=== PATIENT | male | born 1935 | race Caucasian/White ===

== ENCOUNTER 2017-09-04 14:55 | Emergency (ER) | payer OTHER, BC ==
--- NOTE | 2017-09-04 15:00 | PDOC ---
History of Present Illness - General History Source: Patient Exam Limitations: No Limitations - History of Present Illness Initial Comments: 09/04/17 15:25 The patient is a 81 year old male, with a significant past medical history of hypertension, hyperlipidemia, who presents to the emergency department s/p mechanical fall approximately 2-3 hours ago. The patient reports he was watching his granddaughter, when he tripped over a toy and landed on his left ribs. The patient reports he tried to break the fall with his left hand, and his elbows dug into his left rib cage. He denies any head trauma, LOC, changes in vision, hand pain, hip pain, neck or back pain. The patient reports pain to the left ribs, which is pleuritic in nature. He denies any associated chest pain , shortness of breath, diaphoresis, palpitations, or lower extremity edema. Patient reports he was able to ambulate s/p fall, but was driven to the ER by his daughter. Patient reports applying a heating pad with no relief of symptoms , and denies taking any pain meds. He denies any fever, chills, headache, or dizziness. He denies any abdominal pain, nausea, or vomiting. He denies any recent travel or sick contacts. Allergies: NKDA Past Surgical History: Gastrectomy(2/3 of stomach removed), Bilateral knee replacement Social History: Former smoker. No ETOH or recreational drug use. PCP: Dr. Juarez <Jim Tellez - Last Filed: 09/04/17 15:42> - History of Present Illness Initial Comments: 09/05/17 07:47 Physical exam: Alert oriented well-developed well-nourished mild to moderate distress due to pleuritic left chest pain Afebrile, vital signs normal including respiratory rate and O2 sat duration. No tachypnea or dyspnea at rest. There is slight splinting upon deep inspiration due to pleuritic pain at the site of injury Head atraumatic. PERRLA, ENT clear Neck supple without bruit mass or nodes. No point tenderness or deformity with good range of motion of the cervical spine Lungs clear to P&A, although there is splinting with deep inspiration as noted above Examination of the chest reveals no bruising or ecchymoses of the chest wall. There is point tenderness over the left rib cage, anterior axillary line, mid chest. There is no crepitus or deformity. CV S1 and S2 distant without murmur rub or gallop pulses full and symmetric no JVD or edema Abdomen nondistended. Bowel sounds normal. Soft without mass tenderness or organomegaly. Specifically, there is no tenderness or enlargement over the area of the spleen in the left upper quadrant. Extremities no CCE Neurological intact Skin clear, no rash, adequate turgor and wet mucous membranes Impression: Chest contusion, rule out fractured rib, rule out pulmonary contusion, hemothorax, pneumothorax Plan: X-ray and further medical management depending on results <Byron Espinal - Last Filed: 09/05/17 07:53> - General Chief Complaint: Injury Stated Complaint: LEFT RIBCAGE PAIN Time Seen by Provider: 09/04/17 14:59 Past History <Jim Tellez - Last Filed: 09/04/17 15:42> - Past Medical History Anemia: No Asthma: No Cancer: No Cardiac Disorders: No CVA: No COPD: No CHF: No Dementia: No Diabetes: No GI Disorders: Yes Disorders: No HTN: Yes Hypercholesterolemia: Yes Liver Disease: No Seizures: No Thyroid Disease: No - Surgical History Abdominal Surgery: Yes (GASTRECTOMY-2/3 STOMACH REMOVED) Appendectomy: No Cardiac Surgery: No Cholecystectomy: Yes Lung Surgery: No Neurologic Surgery: No Orthopedic Surgery: Yes (BILATERAL KNEE REPLACEMENT) - Immunization History Td Vaccination: No - Suicide/Smoking/Psychosocial Hx Smoking Status: No Smoking History: Former smoker Have you smoked in the past 12 months: No Number of Cigarettes Smoked Daily: 0 If you are a former smoker, when did you quit?: 40 YEARS AGO Hx Alcohol Use: No Drug/Substance Use Hx: No Substance Use Type: None Hx Substance Use Treatment: No <Byron Espinal - Last Filed: 09/05/17 07:53> - Past Medical History Allergies/Adverse Reactions: Allergies Allergy/AdvReac Type Severity Reaction Status Date / Time No Known Allergies Allergy Verified 09/04/17 14:56 Home Medications: Ambulatory Orders Cholecalciferol (Vitamin D3) [Vitamin D3] 5,000 unit PO DAILY 05/21/15 Cyanocobalamin (Vitamin B-12) [B-12] 1,000 mcg PO DAILY tablet 01/26/16 Review of Systems - Review of Systems Able to Perform ROS?: Yes Comments:: 09/04/17 15:25 CONSTITUTIONAL: Absent: fever, no chills, no fatigue EYES: Absent: visual changes ENT: Absent: ear pain, no sore throat CARDIOVASCULAR: Absent: chest pain, no palpitations RESPIRATORY: Absent: cough, no SOB GI: Absent: abdominal pain, no nausea, no vomiting, no constipation, no diarrhea GENITOURINARY: Absent: dysuria, no frequency, no hematuria MUSCULOSKELETAL: Present: Left rib pain worse with deep inspiration. Absent: back pain, no arthralgia, no myalgia SKIN: Absent: rash NEURO: Absent: headache, loss of consciousness <Jim Tellez - Last Filed: 09/04/17 15:42> *Physical Exam - Vital Signs Last Vital Signs Temp Pulse Resp BP Pulse Ox 97.7 F 74 18 164/91 97 09/04/17 14:55 09/04/17 14:55 09/04/17 14:55 09/04/17 14:55 09/04/17 14:55 - Physical Exam Comments: 09/04/17 15:41 GENERAL: Well-appearing, well-nourished. No apparent distress. HEENT: Normocephalic, atraumatic. PERRL, EOM intact. CARDIOVASCULAR: Normal S1, S2. Regular rate and rhythm. PULMONARY: Full breath sounds without wheezing, rales, or ronchi. Clear to auscultation bilaterally. Mild splinting with deep inspiration, but not tachypneic and with adequate oxygen saturation. ABDOMEN: Soft, non-distended, non-tender. No left upper quadrant tenderness. No splenomegaly. EXTREMITIES: Tenderness over the mid left lateral rib cage. No crepitus or deformity palpated. Otherwise normal ROM to all four extremities. No gross deformities. SKIN: Warm, dry. No rash NEUROLOGICAL: No focal neurological deficits. Patient refuses prescription pain medications. <Jim Tellez - Last Filed: 09/04/17 15:42> Medical Decision Making - Medical Decision Making 09/05/17 07:51 X-ray was reviewed. There is a fractured rib with minimal displacement noted in the left mid chest. There is cardiomegaly, and increased interstitial markings that appear chronic, no pneumothorax or hemothorax. Patient is a former substance abuser and he declines prescription pain medication. He is instructed regarding full expansion of the lungs, the use of stabilization techniques for movement, and agrees to take Tylenol as needed for pain. If there is fever, shortness of breath, and instructed to return to the emergency room otherwise follow-up with his primary physician approximately one week. Fully ambulatory and pain controlled upon discharge with family to follow- up as directed <Byron Espinal - Last Filed: 09/05/17 07:53> *DC/Admit/Observation/Transfer - Attestations Scribe Attestion: 09/04/17 15:25 Documentation prepared by Jim Tellez, acting as medical or surgical instrument maker for Byron Chacon MD. <Jim Tellez - Last Filed: 09/04/17 15:42> - Discharge Dispostion Admit: No <Byron Espinal - Last Filed: 09/05/17 07:53> Diagnosis at time of Disposition: Fracture, rib Qualifiers: Encounter type: initial encounter Rib fracture type: single rib Fracture type: closed Laterality: left Qualified Code(s): S22.32XA - Fracture of one rib, left side, initial encounter for closed fracture - Discharge Dispostion Disposition: HOME Condition at time of disposition: Stable - Referrals Referrals: Shahzad Juarez MD [Primary Care Provider] - 1 week - Patient Instructions Printed Discharge Instructions: DI for Rib Fracture Additional Instructions: Rest, use ice, return to the ER if there is fever, increased shortness of breath , increased pain
[2017-09-04 15:02] VITALS: BP 164/91; PULSE 74; TEMP 97.7; BMI 32.5
== END 2017-09-04 15:45 | disposition home or self-care (01) ==
LOC: FER 14:55 → SUPCPDRO 14:55 → FER 15:45
DX: S22.32XA Fracture of one rib, left side, initial encounter for closed fracture (principal); W01.0XXA Fall on same level from slipping, tripping and stumbling without subsequent striking against object, initial encounter; Y93.89 Activity, other specified; Y92.9 Unspecified place or not applicable; I10 Essential (primary) hypertension; E78.5 Hyperlipidemia, unspecified; Z87.891 Personal history of nicotine dependence; Z96.653 Presence of artificial knee joint, bilateral
CPT/HCPCS: 71101-TC; 99283-25

== ENCOUNTER 2023-04-01 22:34 | Observation (INO) | payer OTHER ==
[2023-04-02 01:01] LABS: BASO % 0.4 % (0-2.0); EOS % 0.3 % (0-4.5); HEMATOCRIT 40.2 % (35.4-49); HEMOGLOBIN 13.5 GM/dL (11.7-16.9); LYMPH % 10.4 % (8-40); MCHC 33.7 g/dl (32.0-35.9); MEAN CELL VOLUME 83.2 fl (80-96); MEAN PLT VOLUME 7.4 fl (7.5-11.1); MONO % 5.8 % (3.8-10.2); NEUT % 83.1 % (42.8-82.8); PLATELET COUNT 265 10^3/uL (134-434); RBC 4.83 M/mm3 (4.00-5.60); RDW 14.2 % (11.9-15.9); WHITE BLOOD COUNT 11.2 K/mm3 (4.0-10.0)
[2023-04-02 01:08] LABS: INR 1.06 (0.83-1.09); PROTHROMBIN TIME (PATIENT) 12.3 SEC (9.7-13.0)
[2023-04-02 01:58] LABS: ALBUMIN 3.7 g/dl (3.4-5.0); CALCIUM 8.8 mg/dL (8.5-10.1)
[2023-04-02 01:59] LABS: BLOOD UREA NITROGEN 16.8 mg/dL (7-18)
[2023-04-02 02:02] LABS: CREATININE 0.7 mg/dL (0.55-1.3)
[2023-04-02 02:03] LABS: TOT PROT 6.6 g/dl (6.4-8.2)
[2023-04-02] MEDS ORDERED: ACETAMINOPHEN 1000 MG/100 ML BAG IVPB ONE (02:51)
[2023-04-02] MEDS ORDERED: ACETAMINOPHEN INJECTION 100 ML IVPB ONE (02:52)
[2023-04-02] MEDS ORDERED: KETOROLAC TROMETHAMINE 15 MG/ML VIAL IVPUSH ONE (04:55)
[2023-04-02] MEDS ORDERED: KETOROLAC TROMETHAMINE 15 MG/ML VIAL ONE (04:57)
[2023-04-02] MEDS ORDERED: HYDROmorphone HCl 2 MG/ML VIAL IVPB PRN (10:28)
[2023-04-02] MEDS: MYCOPHENOLATE MOFETIL 500 MG TABLET PO SCH ×2 (11:27→22:00)
[2023-04-02] MEDS: ENALAPRIL MALEATE 5 MG TABLET PO SCH (11:27)
[2023-04-02] MEDS: amLODIPine BESYLATE 10 MG TABLET (FP) PO SCH (11:27)
[2023-04-02 11:43] VITALS: BMI 26.2
[2023-04-02] MEDS ORDERED: ONDANSETRON 4 MG/2 ML VIAL IVPB PRN (13:52)
[2023-04-02] MEDS ORDERED: oxyCODONE HCL 5 MG TABLET PO PRN (13:53)
[2023-04-02] MEDS ORDERED: ONDANSETRON 4 MG/2 ML VIAL IVPB ONE (18:30)
[2023-04-02] MEDS: ATORVASTATIN CA 40 MG TABLET (FP) PO SCH (22:00)
[2023-04-02] MEDS: LIDOCAINE PATCH REMOVAL MC SCH (22:01)
[2023-04-03] MEDS ORDERED: ONDANSETRON 4 MG/2 ML VIAL IVPB PRN (02:00)
[2023-04-03] MEDS: LIDOCAINE 5% TOPICAL PATCH TP SCH ×2 (04:16→09:54)
[2023-04-03] MEDS: MYCOPHENOLATE MOFETIL 500 MG TABLET PO SCH ×2 (09:57→23:35)
[2023-04-03] MEDS: amLODIPine BESYLATE 10 MG TABLET (FP) PO SCH (09:57)
[2023-04-03] MEDS: ENALAPRIL MALEATE 5 MG TABLET PO SCH (09:57)
[2023-04-03] MEDS ORDERED: ACETAMINOPHEN 325 MG TABLET (FP) PO PRN (11:06)
[2023-04-03] MEDS ORDERED: oxyCODONE HCL 5 MG TABLET PO PRN (17:44)
[2023-04-03] MEDS ORDERED: ALBUTEROL SO4 HFA INHALER IH PRN (17:44)
[2023-04-03] MEDS ORDERED: POLYETHYLENE GLYCOL (HEALTHYLAX) 3350 17 GM PACKET PO ONE (18:00)
[2023-04-03] MEDS: ATORVASTATIN CA 40 MG TABLET (FP) PO SCH (23:35)
[2023-04-03] MEDS: LIDOCAINE PATCH REMOVAL MC SCH (23:36)
[2023-04-04 08:38] VITALS: BP 141/60; PULSE 68; RESP 18; TEMP 98.2
[2023-04-04] MEDS: LIDOCAINE 5% TOPICAL PATCH TP SCH (10:35)
[2023-04-04] MEDS: amLODIPine BESYLATE 10 MG TABLET (FP) PO SCH (10:36)
[2023-04-04] MEDS: MYCOPHENOLATE MOFETIL 500 MG TABLET PO SCH (10:49)
[2023-04-04] MEDS: ENALAPRIL MALEATE 5 MG TABLET PO SCH (10:50)
== END 2023-04-04 11:50 | disposition home or self-care (01) ==
LOC: JER 22:34 → JERBED 04-02 04:45 → J7W 04-02 06:56
PROVIDERS: ADMIT Internal Medicine; ATTEND Internal Medicine
PROC: 3E033NZ Introduction of Analgesics, Hypnotics, Sedatives into Peripheral Vein, Percutaneous Approach (ICD-10-PCS; principal; 2023-04-02)
DX: S22.20XA Unspecified fracture of sternum, initial encounter for closed fracture (principal); I10 Essential (primary) hypertension; E78.5 Hyperlipidemia, unspecified; Z96.653 Presence of artificial knee joint, bilateral; M35.00 Sjogren syndrome, unspecified; S27.9XXA Injury of unspecified intrathoracic organ, initial encounter; W18.39XA Other fall on same level, initial encounter; Y93.89 Activity, other specified; Y92.89 Other specified places as the place of occurrence of the external cause; Z87.891 Personal history of nicotine dependence
CPT/HCPCS: 0241U-QW; 36415; 71260-TC; 80053; 83735; 84484; 85025; 85610; 85730; 93005; 93010; 96374; 96375; 96376; 97116-GP; 97161-GP; 99285-25; G0378; J7517; Q9967

== ENCOUNTER 2023-05-07 08:46 | Inpatient (IN) | payer OTHER ==
[2023-05-07 09:38] LABS: INR 1.05 (0.83-1.09); PROTHROMBIN TIME (PATIENT) 12.2 SEC (9.7-13.0)
[2023-05-07 09:39] LABS: VENOUS BASE EXCESS -2.9 mmol/L (-2-2); VENOUS O2 SATURATION 89.2 % (70-80); VENOUS PCO2 31.2 mmHg (38-52); VENOUS PH 7.431 (7.310-7.410)
[2023-05-07 09:40] LABS: ACTIVATED PTT 25.2 SECONDS (25.2-36.5)
[2023-05-07 09:43] LABS: BASO % 0.3 % (0-2.0); EOS % 0.3 % (0-4.5); HEMATOCRIT 39.9 % (35.4-49); HEMOGLOBIN 13.3 GM/dL (11.7-16.9); LYMPH % 12.4 % (8-40); MCH 27.9 pg (25.7-33.7); MCHC 33.4 g/dl (32.0-35.9); MEAN CELL VOLUME 83.6 fl (80-96); MEAN PLT VOLUME 6.9 fl (7.5-11.1); MONO % 0.4 % (3.8-10.2); NEUT % 86.6 % (42.8-82.8); PLATELET COUNT 210 10^3/uL (134-434); RBC 4.78 M/mm3 (4.00-5.60); RDW 15.4 % (11.9-15.9); WHITE BLOOD COUNT 4.5 K/mm3 (4.0-10.0)
[2023-05-07] MEDS ORDERED: ACETAMINOPHEN 1000 MG/100 ML BAG IVPB ONE (09:43)
[2023-05-07] MEDS ORDERED: VANCOMYCIN/WATER 2 GM/400 ML PREMIX BAG (RESTRICTED TO ID ONLY) IVPB ONE (09:48)
[2023-05-07] MEDS ORDERED: PIPERACILLIN/TAZOB 4.5 GM 4.5 GM in DEXTROSE 5%-WATER 100 ML IVPB ONE (09:48)
[2023-05-07] MEDS: SODIUM CHLORIDE 0.9% 500 ML INFUS.BAG IV ONE ×2 (09:49→10:03)
[2023-05-07] MEDS ORDERED: PIPERACILLIN/TAZOB 4.5 GM 4.5 GM/100 ML BAG IVPB ONE ×2 (09:54→09:57)
[2023-05-07] MEDS ORDERED: ACETAMINOPHEN INJECTION 100 ML IVPB ONE (09:54)
[2023-05-07] MEDS ORDERED: SODIUM CHLORIDE 0.9% 500 ML INFUS.BAG IV ONE (10:03)
[2023-05-07 10:14] LABS: LACTIC ACID 3.2 mmol/L (0.4-2.0)
[2023-05-07 10:40] LABS: POTASSIUM 3.9 mmol/L (3.5-5.1)
[2023-05-07 10:45] LABS: ALBUMIN 3.5 g/dl (3.4-5.0); BLOOD UREA NITROGEN 16.1 mg/dL (7-18)
[2023-05-07 10:47] LABS: CREATININE 0.8 mg/dL (0.55-1.3)
[2023-05-07 10:48] LABS: BILIRUBIN,TOTAL 1.2 mg/dL (0.2-1); TOT PROT 6.2 g/dl (6.4-8.2)
[2023-05-07 10:52] LABS: N-TERMINAL BNP 632.8 pg/ml (5-450)
[2023-05-07 12:33] LABS: EPI CELLS 9 /uL (0-25.1); HYALINE CASTS 0 /uL (0-3.1); URINE APPEARANCE CLEAR; URINE BACTERIA 327 /uL (0-1359); URINE BILIRUBIN NEGATIVE (NEGATIVE); URINE COLOR YELLOW; URINE GLUCOSE (UA) NEGATIVE (NEGATIVE); URINE KETONE NEGATIVE (NEGATIVE); URINE LEUK ESTERASE 2+ (NEGATIVE); URINE NITRITE NEGATIVE (NEGATIVE); URINE PROTEIN NEGATIVE (NEGATIVE); URINE RBC 667 /uL (0-23.9); URINE WBC 155 /uL (0-25.8)
[2023-05-07 14:33] VITALS: BMI 28.2
[2023-05-07] MEDS ORDERED: DEXTROSE 5%-0.45% SALINE 1,000 ML IV SCH (15:30)
[2023-05-07] MEDS ORDERED: ALBUTEROL SO4 0.083% IH SOL 2.5 MG/3 ML VIAL.NEB. NEB PRN (15:32)
[2023-05-07] MEDS: PIPERACILLIN/TAZOB 2.25 GM 2.25 GM in DEXTROSE 5%-WATER - 50 ML IVPB SCH (17:20)
[2023-05-07] MEDS: ACETAMINOPHEN 325 MG TABLET (FP) PO PRN (22:04)
[2023-05-07] MEDS: LIDOCAINE PATCH REMOVAL MC SCH (22:05)
[2023-05-07] MEDS: MYCOPHENOLATE MOFETIL 500 MG TABLET PO SCH (22:59)
[2023-05-08] MEDS: PIPERACILLIN/TAZOB 2.25 GM 2.25 GM in DEXTROSE 5%-WATER - 50 ML IVPB SCH ×3 (01:36→13:26)
[2023-05-08 09:06] LABS: HEMATOCRIT 34.2 % (35.4-49); HEMOGLOBIN 11.5 GM/dL (11.7-16.9); MCH 27.8 pg (25.7-33.7); MCHC 33.5 g/dl (32.0-35.9); MEAN PLT VOLUME 7.4 fl (7.5-11.1); PLATELET COUNT 141 10^3/uL (134-434); RBC 4.11 M/mm3 (4.00-5.60); RDW 15.2 % (11.9-15.9); WHITE BLOOD COUNT 16.6 K/mm3 (4.0-10.0)
[2023-05-08 09:17] LABS: POTASSIUM 3.2 mmol/L (3.5-5.1)
[2023-05-08 09:21] LABS: CALCIUM 8.1 mg/dL (8.5-10.1)
[2023-05-08 09:22] LABS: BLOOD UREA NITROGEN 18.1 mg/dL (7-18)
[2023-05-08 09:24] LABS: CREATININE 0.8 mg/dL (0.55-1.3)
[2023-05-08 09:26] LABS: BILIRUBIN,TOTAL 1.3 mg/dL (0.2-1); TOT PROT 4.8 g/dl (6.4-8.2)
[2023-05-08 09:37] LABS: ALBUMIN 2.7 g/dl (3.4-5.0)
[2023-05-08 09:48] LABS: ANISOCYTOSIS 0; MACROCYTOSIS 0
[2023-05-08] MEDS: ENALAPRIL MALEATE 5 MG TABLET PO SCH (11:57)
[2023-05-08] MEDS: TAMSULOSIN HCL 0.4 MG CAP PO SCH (11:57)
[2023-05-08] MEDS: MYCOPHENOLATE MOFETIL 500 MG TABLET PO SCH ×2 (11:58→21:39)
[2023-05-08] MEDS: LIDOCAINE 5% TOPICAL PATCH TP SCH (11:58)
[2023-05-08] MEDS: ACETAMINOPHEN 325 MG TABLET (FP) PO PRN ×2 (12:27→18:03)
[2023-05-08] MEDS: PIPERACILLIN/TAZOB 3.375 GM 3.375 GM in DEXTROSE 5%-WATER - 50 ML IVPB SCH (18:02)
[2023-05-08] MEDS ORDERED: POTASSIUM CHLORIDE ORAL LIQUID 20 MEQ/15 ML PO ONE (20:59)
[2023-05-08] MEDS: LIDOCAINE PATCH REMOVAL MC SCH (21:40)
[2023-05-09] MEDS: PIPERACILLIN/TAZOB 3.375 GM 3.375 GM in DEXTROSE 5%-WATER - 50 ML IVPB SCH ×3 (01:56→17:13)
[2023-05-09] MEDS: ACETAMINOPHEN 325 MG TABLET (FP) PO PRN (06:00)
[2023-05-09 09:36] LABS: BASO % 0.5 % (0-2.0); EOS % 1.4 % (0-4.5); HEMOGLOBIN 11.8 GM/dL (11.7-16.9); LYMPH % 4.8 % (8-40); MCH 27.8 pg (25.7-33.7); MCHC 32.9 g/dl (32.0-35.9); MEAN CELL VOLUME 84.5 fl (80-96); MEAN PLT VOLUME 8.4 fl (7.5-11.1); MONO % 4.7 % (3.8-10.2); NEUT % 88.6 % (42.8-82.8); PLATELET COUNT 128 10^3/uL (134-434); RBC 4.26 M/mm3 (4.00-5.60); RDW 15.1 % (11.9-15.9); WHITE BLOOD COUNT 10.7 K/mm3 (4.0-10.0)
[2023-05-09 09:42] LABS: POTASSIUM 3.8 mmol/L (3.5-5.1)
[2023-05-09 09:46] LABS: CALCIUM 8.6 mg/dL (8.5-10.1)
[2023-05-09] MEDS: TAMSULOSIN HCL 0.4 MG CAP PO SCH (09:48)
[2023-05-09 09:49] LABS: ALBUMIN 2.6 g/dl (3.4-5.0)
[2023-05-09] MEDS: MYCOPHENOLATE MOFETIL 500 MG TABLET PO SCH ×2 (09:49→22:11)
[2023-05-09] MEDS: ENALAPRIL MALEATE 5 MG TABLET PO SCH (09:49)
[2023-05-09 09:54] LABS: CREATININE 0.7 mg/dL (0.55-1.3)
[2023-05-09 09:55] LABS: TOT PROT 4.8 g/dl (6.4-8.2)
[2023-05-09] MEDS: LIDOCAINE 5% TOPICAL PATCH TP SCH (09:56)
[2023-05-09] MEDS ORDERED: VANCOMYCIN/WATER FOR INJ (PEG) 1,000 MG/200 ML BAG IVPB ONE (10:30)
[2023-05-09] MEDS: BUDESONIDE/FORMETEROL FUMARATE 160/4.5 mcg INHALER IH SCH ×2 (14:41→22:12)
[2023-05-09] MEDS: ENOXAPARIN NA (PORCINE) 40 MG/0.4 ML DISP.SYRIN SQ SCH (14:42)
[2023-05-09] MEDS: DUTASTERIDE 0.5 MG CAP (FP) PO SCH (14:42)
[2023-05-09] MEDS: LIDOCAINE PATCH REMOVAL MC SCH (22:17)
[2023-05-10] MEDS: PIPERACILLIN/TAZOB 3.375 GM 3.375 GM in DEXTROSE 5%-WATER - 50 ML IVPB SCH ×2 (01:40→10:10)
[2023-05-10] MEDS: ACETAMINOPHEN 325 MG TABLET (FP) PO PRN ×2 (07:44→21:19)
[2023-05-10 08:58] LABS: BASO % 0.4 % (0-2.0); EOS % 1.8 % (0-4.5); HEMOGLOBIN 11.6 GM/dL (11.7-16.9); LYMPH % 10.5 % (8-40); MCH 28.2 pg (25.7-33.7); MCHC 33.1 g/dl (32.0-35.9); MEAN PLT VOLUME 8.7 fl (7.5-11.1); NEUT % 81.3 % (42.8-82.8); PLATELET COUNT 136 10^3/uL (134-434); RBC 4.12 M/mm3 (4.00-5.60); RDW 14.8 % (11.9-15.9); WHITE BLOOD COUNT 8.6 K/mm3 (4.0-10.0)
[2023-05-10 09:15] LABS: POTASSIUM 3.5 mmol/L (3.5-5.1)
[2023-05-10 09:28] LABS: CALCIUM 8.5 mg/dL (8.5-10.1)
[2023-05-10 09:29] LABS: ALBUMIN 2.5 g/dl (3.4-5.0); BLOOD UREA NITROGEN 10.4 mg/dL (7-18)
[2023-05-10 09:31] LABS: CREATININE 0.7 mg/dL (0.55-1.3)
[2023-05-10 09:38] LABS: TOT PROT 4.7 g/dl (6.4-8.2)
[2023-05-10 09:39] LABS: BILIRUBIN,TOTAL 0.7 mg/dL (0.2-1)
[2023-05-10] MEDS: TAMSULOSIN HCL 0.4 MG CAP PO SCH (10:05)
[2023-05-10] MEDS: DUTASTERIDE 0.5 MG CAP (FP) PO SCH (10:06)
[2023-05-10] MEDS: BUDESONIDE/FORMETEROL FUMARATE 160/4.5 mcg INHALER IH SCH ×2 (10:06→20:55)
[2023-05-10] MEDS: ENALAPRIL MALEATE 5 MG TABLET PO SCH (10:07)
[2023-05-10] MEDS: MYCOPHENOLATE MOFETIL 500 MG TABLET PO SCH ×2 (10:07→21:21)
[2023-05-10] MEDS: LIDOCAINE 5% TOPICAL PATCH TP SCH (10:08)
[2023-05-10] MEDS: ENOXAPARIN NA (PORCINE) 40 MG/0.4 ML DISP.SYRIN SQ SCH (10:09)
[2023-05-10] MEDS: AMPICILLIN NA/SULBACTAM NA 3 GM in SODIUM CHLORIDE 100 ML IVPB SCH ×2 (16:07→20:55)
[2023-05-10] MEDS: LIDOCAINE PATCH REMOVAL MC SCH (21:20)
[2023-05-11] MEDS: AMPICILLIN NA/SULBACTAM NA 3 GM in SODIUM CHLORIDE 100 ML IVPB SCH ×3 (02:49→15:43)
[2023-05-11] MEDS: ACETAMINOPHEN 325 MG TABLET (FP) PO PRN (07:01)
[2023-05-11] MEDS: TAMSULOSIN HCL 0.4 MG CAP PO SCH (08:48)
[2023-05-11] MEDS: BUDESONIDE/FORMETEROL FUMARATE 160/4.5 mcg INHALER IH SCH (08:48)
[2023-05-11] MEDS: DUTASTERIDE 0.5 MG CAP (FP) PO SCH (11:03)
[2023-05-11] MEDS: ENALAPRIL MALEATE 5 MG TABLET PO SCH (11:03)
[2023-05-11] MEDS: LIDOCAINE 5% TOPICAL PATCH TP SCH (11:03)
[2023-05-11] MEDS: ENOXAPARIN NA (PORCINE) 40 MG/0.4 ML DISP.SYRIN SQ SCH (11:03)
[2023-05-11] MEDS: MYCOPHENOLATE MOFETIL 500 MG TABLET PO SCH (11:04)
[2023-05-11] MEDS ORDERED: AMOX TR/POT CLAV 875MG/125MG TABLETS (FP) PO SCH (17:30)
[2023-05-11 19:44] VITALS: RESP 20
[2023-05-11 19:47] VITALS: BP 120/69; PULSE 75; TEMP 98.6
== END 2023-05-11 19:08 | disposition home or self-care (01) | DRG 872 ==
LOC: JER 08:46 → JERBED 12:02 → J8W 14:45
PROVIDERS: ADMIT Internal Medicine; ATTEND Internal Medicine
DX: A41.9 Sepsis, unspecified organism (principal); N39.0 Urinary tract infection, site not specified; E87.20 Acidosis, unspecified; J98.11 Atelectasis; J96.11 Chronic respiratory failure with hypoxia; J84.9 Interstitial pulmonary disease, unspecified; I10 Essential (primary) hypertension; M35.00 Sjogren syndrome, unspecified; E78.5 Hyperlipidemia, unspecified; M81.0 Age-related osteoporosis without current pathological fracture; D72.829 Elevated white blood cell count, unspecified; Z99.81 Dependence on supplemental oxygen; R33.9 Retention of urine, unspecified
CPT/HCPCS: 0241U-QW; 36415; 71045-TC-FY; 71101-TC-RT-FY; 80053; 81003; 82550; 82553; 82803; 83605; 83880; 84153; 84484; 85025; 85610; 85730; 86850; 86900; 86901; 87040; 87070; 87086; 87205; 87899; 93005; 93010; 93306-TC; 97116-GP; 97161-GP; 99291; J7517

== ENCOUNTER 2024-11-13 14:13 | Emergency (ER) | payer OTHER ==
[2024-11-13] MEDS ORDERED: ACETAMINOPHEN 325 MG TABLET (FP) ONE (14:24)
[2024-11-13] MEDS: ACETAMINOPHEN 325 MG TABLET (FP) PO ONE (14:35)
[2024-11-13 16:09] VITALS: BP 140/78; PULSE 83; RESP 18; TEMP 97.7; BMI 27.6
== END 2024-11-13 15:29 | disposition home or self-care (01) ==
LOC: FER 14:13
DX: S20.211A Contusion of right front wall of thorax, initial encounter (principal); W01.0XXA Fall on same level from slipping, tripping and stumbling without subsequent striking against object, initial encounter
CPT/HCPCS: 71101-TC-RT-FY; 99283-25